=== PATIENT | female | born 1945 | race Caucasian/White ===

== ENCOUNTER 2018-04-11 04:11 | Emergency (ER) | payer OTHER, BC ==
[~2018-04-11] VITALS: Ht 167.6 cm; Wt 69.4 kg
[~2018-04-11 04:11] MED LIST: DIAZEPAM2 MG PO; DIOVAN160 MG PO; LIPITOR20 MG PO; PROTONIX40 MG PO; TRICOR145 MG PO; VITAMIN D50000 UNIT PO
[2018-04-11] MEDS ORDERED: DIAZEPAM2 MG PO (05:06)
[2018-04-11 05:09] LABS: HEMATOCRIT 40.2 % (36.0-46.0); HEMOGLOBIN 12.9 G/DL (11.9-15.5); MCH 31.2 PG (29.0-34.0); MCHC 32.1 G/DL (30.0-36.0); MCV 97.1 FL (83-99); PLATELET COUNT 263 K/uL (156-360); RED BLOOD COUNT 4.14 M/uL (3.80-5.20); WHITE BLOOD COUNT 6.2 K/uL (4.1-10.2)
[2018-04-11 05:17] LABS: ALBUMIN 4.4 g/dL (3.2-4.8); CHLORIDE 105 mEq/L (99-109); POTASSIUM 4.4 mEq/L (3.7-5.4)
[2018-04-11 05:18] LABS: SODIUM 144 mEq/L (136-147)
[2018-04-11 05:20] LABS: GLUCOSE 106 mg/dL (70-99); TOTAL PROTEIN 7.4 g/dL (6.4-8.3)
[2018-04-11 05:22] LABS: TOTAL BILIRUBIN 0.3 mg/dL (0.0-1.0)
[2018-04-11 05:25] LABS: AST (GOT) 22 IU/L (2-34); UREA NITROGEN (BUN) 24 mg/dL (9-23)
[2018-04-11 05:26] LABS: ALT (GPT) 15 IU/L (3-49)
[2018-04-11 05:45] LABS: TROP-I INTERPRETATION NEGATIVE; TROPONIN-I < 0.01 ng/mL (0.0-0.30)
[2018-04-11 07:15] LABS: APPEARANCE CLEAR ((CLEAR)); BILIRUBIN NEGATIVE; BLOOD NEGATIVE; COLOR STRAW ((YELLOW)); GLUCOSE (STRIP) NEGATIVE; KETONES NEGATIVE; LEUKOCYTES NEGATIVE; NITRITE NEGATIVE; PROTEIN (STRIP) NEGATIVE; SPECIFIC GRAVITY 1.016 (1.000-1.030); UCUL ADDED? NO; UROBILINOGEN 0.2 MG/DL (0.2-1.0)
[2018-04-11] MEDS ORDERED: ULTRAM50 MG PO (07:27)
[2018-04-11] MEDS ORDERED: HYDROCHLOROTHIA25 MG PO (07:27)
[2018-04-11 07:54] LABS: ALKALINE PHOSPHATASE 95 IU/L (3-129)
[2018-04-11 07:55] LABS: CREATININE 0.8 mg/dL (0.6-1.3); GFR ESTIMATE (CALCULATED) > 59 mL/min/
[2018-04-11 07:58] LABS: LIPASE 49 U/L (1.0-51.0)
[2018-04-11 08:30] VITALS: BP 171/76
[2018-04-11 08:34] LABS: THYROTROPIN (TSH) 3.7 MIU/L (0.4-5.5)
== END 2018-04-11 08:32 | disposition home or self-care (01) ==
LOC: EME 04:11
PROVIDERS: Emergency Medicine
DX: R60.0 Localized edema (principal); I10 Essential (primary) hypertension; R06.02 Shortness of breath; M71.22 Synovial cyst of popliteal space [Baker], left knee; R10.9 Unspecified abdominal pain; R10.813 Right lower quadrant abdominal tenderness; E78.5 Hyperlipidemia, unspecified; Z90.710 Acquired absence of both cervix and uterus; Z87.891 Personal history of nicotine dependence
CPT/HCPCS: 71045; 80053; 81003; 83690; 83880; 84443; 84484; 85027; 93005; 93970; 99281; 99284